=== PATIENT | male | born 1950 | race Caucasian/White ===

== ENCOUNTER 2016-11-30 16:37 | Observation (INO) | payer OTHER ==
--- NOTE | 2016-11-30 17:16 | ED.PDOC ---
History of Present Illness - General Chief Complaint: General Stated Complaint: palpitations Time Seen by Provider: 11/30/16 17:15 Source: patient Exam Limitations: no limitations - History of Present Illness Initial Comments: Lamonte Gonzalez 66 y/o male stated that she felt heart was racing about 1 1/2 h ago while at his md's office denies chest pains ,dizziness,light headedness,N/ V. He also stated that he took cold/sinus advil for his cough and congestion Timing/Duration: 1-3 hours Severity: moderate Improving Factors: nothing Worsening Factors: nothing Associated Symptoms: denies symptoms Allergies/Adverse Reactions: Allergies NO KNOWN ALLERGY Allergy (Verified 11/30/16 17:54) Home Medications: Ambulatory Orders Rosuvastatin Calcium [Crestor] 20 mg PO DAILY 11/30/16 Review of Systems - Review of Systems Constitutional: States: no symptoms reported EENTM: States: no symptoms reported Respiratory: States: no symptoms reported Cardiology: States: see HPI Gastrointestinal/Abdominal: States: no symptoms reported Genitourinary: States: no symptoms reported Musculoskeletal: States: no symptoms reported Skin: States: no symptoms reported Past Medical History (General) - Patient Medical History Hx Other PMH: Yes - hypercholesterolemia Surgical History: other - knee Family Medical History - Family History Mother Hx Family Cancer: Yes - Brain cancer-mom Physical Exam - Physical Exam General Appearance: Alert, No apparent distress Eye Exam: bilateral normal Ears, Nose, Throat: hearing grossly normal, normal ENT inspection Neck: non-tender, supple Respiratory: chest non-tender, lungs clear, normal breath sounds Cardiovascular/Chest: normal peripheral pulses, no gallop - heart rate-121, no murmur, tachycardia Peripheral Pulses: radial,right: 1+, radial,left: 1+ Gastrointestinal/Abdominal: normal bowel sounds, soft, no organomegaly, no pulsatile mass Back Exam: no CVA tenderness, no vertebral tenderness Extremity: no pedal edema, no calf tenderness Neurologic: no motor/sensory deficits, alert Skin Exam: normal color, warm/dry Lymphatic: no adenopathy Progress - Progress Progress: 11/30/16 20:08 Vital Signs - 8 hr 11/30/16 11/30/16 11/30/16 17:34 17:48 18:25 Temperature 98.1 F 97.8 F Pulse Rate [L] 124 H 126 H 123 H Respiratory 18 18 18 Rate Blood Pressure 152/88 146/97 148/100 [Left Arm] O2 Sat by Pulse 97 98 97 Oximetry Laboratory Tests 11/30/16 11/30/16 11/30/16 17:25 17:25 17:25 WBC 8.6 RBC 5.10 Hgb 14.5 Hct 42.8 MCV 84.0 MCH 28.5 MCHC 33.9 RDW 13.3 Plt Count 132 MPV 6.9 L Absolute Neuts (auto) 6.30 Absolute Lymphs (auto) 1.10 Absolute Monos (auto) 1.10 H Absolute Eos (auto) 0.10 Absolute Basos (auto) 0.10 Neutrophils % 72.8 Lymphocytes % 12.8 L Monocytes % 12.9 H Eosinophils % 0.6 L Basophils % 0.9 Sodium 137 Potassium 3.8 Chloride 104 Carbon Dioxide 24 Anion Gap 12.8 BUN 19 H Creatinine 1.18 BUN/Creatinine Ratio 16.1 Random Glucose 139 H Serum Osmolality 278.3 Calcium 9.4 Total Bilirubin 1.0 AST 20 ALT 18 Alkaline Phosphatase 76 Troponin I 0.05 Serum Total Protein 8.0 Albumin 4.7 Globulin 3.3 Albumin/Globulin Ratio 1.4 Urine Color Urine Appearance Urine pH Ur Specific [place] Urine Protein Urine Glucose (UA) Urine Ketones Urine Blood Urine Nitrite Urine Bilirubin Urine Urobilinogen Ur Leukocyte Esterase Urine RBC Urine WBC Ur Epithelial Cells Urine Bacteria 11/30/16 11/30/16 18:00 19:06 WBC RBC Hgb Hct MCV MCH MCHC RDW Plt Count MPV Absolute Neuts (auto) Absolute Lymphs (auto) Absolute Monos (auto) Absolute Eos (auto) Absolute Basos (auto) Neutrophils % Lymphocytes % Monocytes % Eosinophils % Basophils % Sodium Potassium Chloride Carbon Dioxide Anion Gap BUN Creatinine BUN/Creatinine Ratio Random Glucose Serum Osmolality Calcium Total Bilirubin AST ALT Alkaline Phosphatase Troponin I 0.05 Serum Total Protein Albumin Globulin Albumin/Globulin Ratio Urine Color Yellow Urine Appearance Clear Urine pH 6.0 Ur Specific [place] 1.010 Urine Protein Negative Urine Glucose (UA) Negative Urine Ketones Negative Urine Blood Trace-intact H Urine Nitrite Negative Urine Bilirubin Negative Urine Urobilinogen 0.2 Ur Leukocyte Esterase Negative Urine RBC 0-1 Urine WBC 0-1 Ur Epithelial Cells 0 Urine Bacteria 0 - EKG/XRAY/CT EKG: Sinus, Tachy, nonspecific ST T wave Chg Comments: Heart rate-124 XRAY: chest - no acute abnormalities Departure - Departure Clinical Impression: Inappropriate sinus node tachycardia Time of Disposition: 20:10 - D/W Esperanza Brower-ANP/Hospitalist Disposition: Admit Patient Condition: Fair Departure Forms: ED Discharge - Pt. Copy, Patient Portal Self Enrollment Referrals: Vernon Paris MD [Primary Care Provider] - 1-2 Weeks Home Medications: Ambulatory Orders Rosuvastatin Calcium [Crestor] 20 mg PO DAILY 11/30/16 Decision To Admit - Decistion To Admit Decision to Admit Reason: Admit from ER Decision to Admit Date: 11/30/16 Decision to Admit Time: 20:07
[2016-11-30] MEDS ORDERED: LABETALOL INJ 5 MG/ML VIAL IV ONE (18:17)
--- NOTE | 2016-11-30 18:23 | RAD ---
EXAM: Chest,1 View CLINICAL INDICATION: 66-year-old male with palpitations. TECHNIQUE: Single view, AP portable chest was obtained. COMPARISON: 04/29/2006. FINDINGS: Unremarkable cardiac and mediastinal silhouette. Heart size is normal. Lungs are clear without focal opacity, pneumothorax or pleural effusions. The visualized bones are within normal limits. IMPRESSION: No acute cardiopulmonary abnormalities. Electronically signed by: Chen Vanegas MD 11/30/2016 6:22 PM CDT Workstation: [id number]
[2016-11-30] MEDS ORDERED: SODIUM CHLORIDE 0.9% 1000ML 1,000 ML IVS ONE (19:52)
[2016-11-30] MEDS ORDERED: LABETALOL INJ 5 MG/ML VIAL ONE (20:02)
[2016-11-30] MEDS ORDERED: LIDOCAINE VIS-MYLANTA 30 ML UD PO ONE ×2 (22:05)
--- NOTE | 2016-11-30 22:08 | HP ---
SUPERVISING PHYSICIAN: Vernon Paris MD CHIEF COMPLAINT: Palpitations. HISTORY OF PRESENT ILLNESS: This is a 66-year-old male patient who had some chest congestion, some coughing and drainage and thought it was his sinuses that were acting up. He has had a history on and off of his pulse getting somewhat elevated, but he went to the Urgent Care Clinic at [facility] and during his exam was found to have a pulse rate in the 150s. He was immediately sent over to the Emergency Room. In the Emergency Room, he had no complaints of chest pain, but he did complain of some fluttering in his chest. His initial cardiac enzymes showed a troponin of 0.05 and 1-1/2 hours later, his subsequent troponin was 0.05. He was observed in the Emergency Room for about 2 hours and his heart rate did not decrease. He has also had quite a bit of anxiety over the last couple of months as his was diagnosed with colon cancer and had a partial colon resection. He also thought that he had not been drinking as much water as he typically does. His urinalysis was basically within normal limits with the exception of trace of urine blood. His CBC was also within normal limits. His chemistries were basically within normal limits with the exception that his glucose was 139 and BUN was 19. Chest x-ray per radiologic interpretation showed no acute cardiopulmonary abnormality. He was then given some Ativan as well as some labetalol. His heart rate dropped from 120s to 130s down to 86. Due to the new onset of tachycardia, I was called for admission. PAST MEDICAL HISTORY: 1. Hyperlipidemia. 2. Gastroesophageal reflux disease. 3. Type 2 diabetes mellitus, diet controlled. 4. Anxiety. PAST SURGICAL HISTORY: 1. Left knee surgery in 1967. 2. Colonoscopy in 2001. OUTPATIENT MEDICATIONS: 1. Crestor. ALLERGIES: NO KNOWN DRUG ALLERGIES. SOCIAL HISTORY: He lives in [place]. He is . He has two children. He denies any tobacco, ETOH, or illicit drug use. REVIEW OF SYSTEMS: GENERAL: Denies fever, fatigue or weight changes. HEENT: Positive for sinus symptoms and drainage as well as sore throat. Negative for ear pain or vision changes. RESPIRATORY: Positive for chest congestion and dry, nonproductive cough. Negative for wheezing or shortness of breath. CARDIAC: As per history of present illness. GASTROINTESTINAL: Negative for nausea, vomiting, diarrhea, constipation or abdominal pain. GENITOURINARY: Negative for hematuria, dysuria or polyuria. NEUROLOGIC: Negative for headache, dizziness, or seizures. PHYSICAL EXAMINATION: VITAL SIGNS: Temperature now 97.4. Heart rate 86. Blood pressure 138/85. Respiratory rate 18. O2 saturation 97%. GENERAL: This is a 66-year-old, male patient who is in no acute distress. HEENT: Normocephalic, atraumatic. Pupils are equal and reactive. Oropharynx is clear. He does have some clear nasal drainage. RESPIRATORY: Clear to auscultation bilaterally. CHEST: There is equal rise and fall of the chest with inspiration and expiration. CARDIOVASCULAR: At this time, regular rate and rhythm. Earlier in the Emergency Room, his heart was sinus tachycardia with rates in the 120s to 130s. At that time, it was sinus tachycardia on the monitoring and evaluation advisor, now sinus rhythm on the monitoring and evaluation advisor. ABDOMEN: Soft, nondistended, nontender. Bowel sounds are positive. EXTREMITIES: No cyanosis, clubbing or edema. NEUROLOGIC: Awake, alert and oriented times three. LABORATORY: Labs and films are as per the history of present illness. ASSESSMENT: 1. New onset of sinus tachycardia, may be related to anxiety, but with a troponin at the upper limit of normal. 2. Acute sinusitis, most likely seasonal allergy related. 3. Gastroesophageal reflux disease. 4. Diabetes mellitus, type 2. 5. Anxiety. PLAN: We will place the patient in observation. I will repeat two additional cardiac enzymes as well as EKGs. I have given him Xanax for his anxiety. I will start him on Claritin for his seasonal allergies. We may need to start him on nasal steroid tomorrow for his acute sinusitis. He will be on the monitoring and evaluation advisor. I have ordered proton pump inhibitor for ulcer prophylaxis and it may be warranted that he needs a proton pump inhibitor on discharge until he can see Dr. Paris in followup. It has been about 15 years since he had his last colonoscopy, so he will need to followup with his GI doctor. Consider placing him on a low dose SSRI. I have ordered routine labs for in the morning. We will continue to monitor the patient closely and follow as needed. Dr. Paris is the collaborating physician and available for consultation. #[id number] [facility]
[2016-11-30] MEDS ORDERED: SODIUM CHLORIDE 0.9% (FLUSH) 10 ML SYG IV PRN (22:23)
[2016-11-30] MEDS ORDERED: NITROGLYCERIN 0.4 MG 25 EA TAB SL PRN (22:23)
[2016-11-30] MEDS ORDERED: ACETAMINOPHEN 325 MG TAB PO PRN (22:23)
[2016-11-30] MEDS ORDERED: MORPHINE SULFATE INJ 10 MG/ML VIAL IV PRN (22:23)
[2016-11-30] MEDS ORDERED: IV SET AND CAP CHANGE INJ INJ SCH (22:30)
[2016-11-30] MEDS ORDERED: ALPRAZolam 0.25 MG TAB PO PRN (22:31)
[2016-11-30] MEDS ORDERED: PANTOPRAZOLE SODIUM IV 40 MG VIAL IV SCH (23:00)
[2016-12-01 06:29] VITALS: TEMP 98.3
[2016-12-01] MEDS ORDERED: SODIUM CHLORIDE 0.9% (FLUSH) 10 ML SYG IV SCH (09:00)
[2016-12-01] MEDS ORDERED: ASPIRIN TABLET 325 MG TAB PO SCH (09:00)
[2016-12-01] MEDS ORDERED: ATORVASTATIN 20 MG TAB PO SCH (09:00)
[2016-12-01] MEDS ORDERED: NON-FORMULARY MEDICATION 1 EA MIS (Rosuvastatin Calcium [Crestor] 20 MG) PO SCH (09:00)
[2016-12-01 10:23] VITALS: BP 117/70; O2SAT 98
[2016-12-01] MEDS ORDERED: PANTOPRAZOLE SODIUM TAB 40 MG PO SCH (11:30)
--- NOTE | 2016-12-01 13:07 | DS ---
SUPERVISING PHYSICIAN: Vernon Paris MD DISCHARGE DIAGNOSIS: 1. New onset of sinus tachycardia, may be related to anxiety, but initial troponins at the upper limits of normal at 0.05 and negative cardiac enzymes with his final troponin at 0.03. His heart rate normalized after one dose of labetalol and lorazepam. 2. Gastroesophageal reflux disease. 3. Acute sinusitis, most likely seasonal allergy related. 4. Diabetes mellitus, type 2, diet controlled. 5. Anxiety. HISTORY OF PRESENT ILLNESS: This is a 66-year-old male patient who had some chest congestion, some coughing and drainage and thought it was his sinuses that were acting up. He has had a history on and off of his pulse getting somewhat elevated, but he went to the Urgent Care Clinic at [facility] and during his exam was found to have a pulse rate in the 150s. He was immediately sent over to the Emergency Room. In the Emergency Room, he had no complaints of chest pain, but he did complain of some fluttering in his chest. His initial cardiac enzymes showed a troponin of 0.05 and 1-1/2 hours later, his subsequent troponin was 0.05. He was observed in the Emergency Room for about 2 hours and his heart rate did not decrease. He has also had quite a bit of anxiety over the last couple of months as his was diagnosed with colon cancer and had a partial colon resection. He also thought that he had not been drinking as much water as he typically does. His urinalysis was basically within normal limits with the exception of trace of urine blood. His CBC was also within normal limits. His chemistries were basically within normal limits with the exception that his glucose was 139 and BUN was 19. Chest x-ray per radiologic interpretation showed no acute cardiopulmonary abnormality. He was then given some Ativan as well as some labetalol. His heart rate dropped from 120s to 130s down to 86. Due to the new onset of tachycardia, I was called for admission. HOSPITAL COURSE: The patient was placed in observation in the hospital. His subsequent cardiac enzymes were negative and his last troponin was 0.03. He was also given Protonix for ulcer prophylaxis and the patient reported that he had had Protonix in the past and it improved his gastroesophageal reflux disease symptoms and felt that it did the same thing on this admission. His chemistries were basically within normal limits as well as his cholesterol. His hemoglobin and hematocrit were slightly low at 12.7 and 36.7. EKGs were within normal limits. He has had no complaints of chest pain, shortness of breath, nausea or vomiting, diaphoresis and he will be discharged home. DISCHARGE PLAN: The patient will be discharged home in stable condition. He is to resume his previous diet and activity. He has a followup appointment with Dr. Paris on 12/15/16 at 10:45 AM. Recommendations would be that he get a cardiac workup including a stress test and echocardiogram. He will also need colonoscopy as he has not had one in 15 years. I am going to send him home on some Protonix as that may help with his gastroesophageal reflux disease symptoms for right now. He will also be discharged on his Crestor as well as an aspirin. He is to return to the hospital or call Dr. Paris's office for any further problems or complications. DISCHARGE MEDICATIONS: 1. Crestor. 2. Aspirin. 3. Protonix. Dr. Paris is the collaborating physician and available for consultation. #[id number] [facility]
== END 2016-12-01 11:25 | disposition home or self-care (01) ==
LOC: ER 16:37 → MS 22:07
PROVIDERS: ADMIT Nurse Practitioner Acute Care; ATTEND Nurse Practitioner Acute Care
DX: R00.0 Tachycardia, unspecified (principal); K21.9 Gastro-esophageal reflux disease without esophagitis; J01.90 Acute sinusitis, unspecified; E11.9 Type 2 diabetes mellitus without complications; F41.9 Anxiety disorder, unspecified; E78.5 Hyperlipidemia, unspecified; Z79.899 Other long term (current) drug therapy
CPT/HCPCS: 36415 ×5; 71010; 80048; 80053; 80061; 81001; 82550 ×2; 82553 ×2; 84484 ×4; 85025 ×2; 93005 ×4; 94760 ×2; 96361; 96374; 96375 ×2; 99284; G0378; J2060; J7030

== ENCOUNTER → 2016-12-15 | Outpatient (CLI) | payer OTHER | LOC: GMAM 14:54 | PROVIDERS: ATTEND Family Medicine | DX: R00.0 Tachycardia, unspecified (principal) ==

== ENCOUNTER 2017-02-27 08:09 | Emergency (ER) | payer OTHER ==
[2017-02-27] MEDS ORDERED: LIDOCAINE VIS-MYLANTA 30 ML UD PO ONE (08:41)
[2017-02-27 08:44] VITALS: TEMP 99.8; O2SAT 98
--- NOTE | 2017-02-27 08:48 | ED.PDOC ---
History of Present Illness - General Chief Complaint: General Stated Complaint: Follow up after acid reflux sx's & R shoulder pain Time Seen by Provider: 02/27/17 08:43 Source: patient, family Exam Limitations: no limitations - History of Present Illness Timing/Duration: 4-6 hours, constant Severity: mild Improving Factors: nothing Worsening Factors: nothing Associated Symptoms: loss of appetite, malaise - pt reports belching and burning in epigastric area, states that ate poorly yesterday secondary to holiday cooking. did not take any medications for it. associated with nausea. reports recently started on elliquis for right DVT and "over did it" yesterday. Has a history of GERD. has not missed any medication doses recently. no shortness of breath, no chest pain, no weakness. no dark stools or bleeding Allergies/Adverse Reactions: Allergies NO KNOWN ALLERGY Allergy (Verified 02/27/17 08:23) Home Medications: Ambulatory Orders Rosuvastatin Calcium [Crestor] 20 mg PO DAILY 11/30/16 Pantoprazole Tablet [Protonix] 40 mg PO DAILY@0630 #30 tablet 12/01/16 Apixaban [Eliquis] 5 mg PO BID 02/27/17 Fexofenadine HCl [Viviane Allergy] 180 mg PO DAILY 02/27/17 Sucralfate Tab [Carafate Tab] 1 gm PO TID #30 tab 02/27/17 Review of Systems - Review of Systems Constitutional: States: malaise. Denies: chills, fever, weakness EENTM: Denies: ear pain, nose pain, nose congestion, throat pain, throat swelling, mouth pain, mouth swelling Respiratory: Denies: cough, short of breath, wheezing Cardiology: Denies: chest pain, syncope Gastrointestinal/Abdominal: States: abdominal pain, nausea. Denies: diarrhea, vomiting Genitourinary: Denies: dysuria, frequency, hematuria Musculoskeletal: Denies: gout, joint pain, joint swelling, muscle pain, muscle stiffness Skin: Denies: change in hair/nails, dryness, lesions Neurological: States: anxiety. Denies: depressed, headache, numbness, paresthesia, tingling, tremors, weakness Endocrine: Denies: excessive sweating, flushing, intolerance to cold, intolerance to heat, increased hunger, increased thirst, increased urine Hematologic/Lymphatic: States: blood clots Past Medical History (General) - Patient Medical History Hx Seizures: No Hx Stroke: No Hx Asthma: No Hx of COPD: No Hx Cardiac Disorders: Yes - hypercholesterolemia; dx of blood clot 02/2017 Hx Congestive Heart Failure: No Hx Pacemaker: No Hx Hypertension: No Hx Diabetes: No - hypoglycemia Hx Gastroesophageal Reflux: Yes Hx Cancer: No Hx Hepatitis C: No Hx MRSA: No Surgical History: other - Vaccination History Hx Tetanus, Diphtheria Vaccination: No Hx Influenza Vaccination: No Hx Pneumococcal Vaccination: Yes - Social History Hx Tobacco Use: No Hx Chewing Tobacco Use: No Hx Alcohol Use: No Hx Substance Use: No Hx Substance Use Treatment: No Hx Depression: No Hx Physical Abuse: No Hx Emotional Abuse: No Hx Suspected Abuse: No Family Medical History - Family History Mother Hx Family Cancer: Yes - Brain cancer-mom Physical Exam - Physical Exam General Appearance: Alert, Anxious, No apparent distress, Well Developed, Well Groomed, Well Hydrated, Well Nourished Eye Exam: bilateral normal Ears, Nose, Throat: normal ENT inspection, normal pharynx Neck: non-tender, full range of motion, supple Respiratory: chest non-tender, lungs clear, normal breath sounds, no respiratory distress, no accessory muscle use Cardiovascular/Chest: normal peripheral pulses, no edema, no gallop, no JVD, no murmur, tachycardia Peripheral Pulses: radial,right: 2+, popliteal,right: 2+, popliteal,left: 2+ Gastrointestinal/Abdominal: non tender, soft Extremity: normal range of motion, non-tender, no calf tenderness Neurologic: access specialist II-XII nml as tested, no motor/sensory deficits Skin Exam: normal color, warm/dry Lymphatic: no adenopathy Progress - Progress Progress: 02/27/17 09:03 pt's symptoms resolved after GI slider; discussed vital signs with patient. 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 Will slight temp elevation discussed precautions for infectious etiology. Agreed to give urine sample given malaise, tachycardia, temp elevation to rule out UTI. 02/27/17 09:19 02/27/17 08:27 EKG Assessment ONCE 02/27/17 08:30 EKG STAT Laboratory Results Urine Color Yellow (Yellow) 02/27/17 09:06 Urine Appearance Clear (Clear) 02/27/17 09:06 Urine pH 6.5 (4.5-7.8) 02/27/17 09:06 Ur Specific [place] 1.020 (1.005-1.030) 02/27/17 09:06 Urine Protein Negative mg/dL 02/27/17 09:06 Urine Glucose (UA) Negative mg/dL (Negative) 02/27/17 09:06 Urine Ketones Negative mg/dL (NEGATIVE) 02/27/17 09:06 Urine Blood Negative (Negative) 02/27/17 09:06 Urine Nitrite Negative 02/27/17 09:06 Urine Bilirubin Negative (NEGATIVE) 02/27/17 09:06 Urine Urobilinogen 0.2 mg/dL (0.2-1.0) 02/27/17 09:06 Ur Leukocyte Esterase Negative (Negative) 02/27/17 09:06 Urine RBC 0 /hpf 02/27/17 09:06 Urine WBC 0 /hpf 02/27/17 09:06 Ur Epithelial Cells 0 /hpf 02/27/17 09:06 Urine Bacteria 0 02/27/17 09:06 - EKG/XRAY/CT EKG: Sinus - qtc 457, Tachy Comments: no right heart strain, no s in 1 or q t in 3 rate 114, pr 182, qrs 80 Departure - Departure Clinical Impression: GERD (gastroesophageal reflux disease) Disposition: Discharge to Home or Self Care Condition: Excellent Departure Forms: ED Discharge - Pt. Copy, Patient Portal Self Enrollment Instructions: Heartburn -- Overview, DI for Gastroesophageal Reflux Disease ( GERD), GERD Diet Diet: bland diet Activity: increase activity as tolerated Referrals: Vernon Paris MD [Primary Care Provider] - 1-2 Weeks Prescriptions: Sucralfate Tab [Carafate Tab] 1 gm PO TID #30 tab Home Medications: Ambulatory Orders Rosuvastatin Calcium [Crestor] 20 mg PO DAILY 11/30/16 Pantoprazole Tablet [Protonix] 40 mg PO DAILY@0630 #30 tablet 12/01/16 Apixaban [Eliquis] 5 mg PO BID 02/27/17 Fexofenadine HCl [Viviane Allergy] 180 mg PO DAILY 02/27/17 Sucralfate Tab [Carafate Tab] 1 gm PO TID #30 tab 02/27/17
[2017-02-27 09:32] VITALS: BP 140/80
== END 2017-02-27 09:27 | disposition home or self-care (01) ==
LOC: ER 08:09
DX: K21.9 Gastro-esophageal reflux disease without esophagitis (principal); R00.0 Tachycardia, unspecified; E78.00 Pure hypercholesterolemia, unspecified; Z86.718 Personal history of other venous thrombosis and embolism

== ENCOUNTER → 2017-06-20 | Outpatient (CLI) | payer OTHER | LOC: GMAM 10:21 | PROVIDERS: ATTEND Family Medicine | DX: Z12.5 Encounter for screening for malignant neoplasm of prostate (principal) ==

== ENCOUNTER 2018-01-14 16:13 | Emergency (ER) | payer OTHER ==
[2018-01-14 16:30] VITALS: TEMP 98.8
--- NOTE | 2018-01-14 16:31 | ED.PDOC ---
History of Present Illness - General Chief Complaint: General Time Seen by Provider: 01/14/18 16:24 Source: patient Exam Limitations: no limitations - History of Present Illness Initial Comments: PT HAS HAD KNOWN DVT RLE FOR PAST 10 MONTHS. HAS BEEN ON ELIQUIS SINCE THAT TIME AND HAS NOT RECENTLY MISSED ANY DOSES. NO HX OF TRAUMA TO THE EXTREMITY. HAS BEEN WORKING MORE RECENTLY TOOK A NAP ON THE COUCH WITH HIS LEG PROPPED UP ON THE BACK. WHEN HE GOT UP HE HAD SEVERE PAIN TO THE RIGHT LEG FROM THE GROIN TO THE FOOT. Severity: moderate Worsening Factors: other - SPONTANEOUS RESOLUTION "FEELS 150% BETTER". Associated Symptoms: denies symptoms Allergies/Adverse Reactions: Allergies NO KNOWN ALLERGY Allergy (Verified 02/27/17 08:23) Home Medications: Ambulatory Orders Rosuvastatin Calcium [Crestor] 20 mg PO DAILY 11/30/16 Pantoprazole Tablet [Protonix] 40 mg PO DAILY@0630 #30 tablet 12/01/16 Apixaban [Eliquis] 5 mg PO BID 02/27/17 Review of Systems - Review of Systems Constitutional: Denies: chills, fever EENTM: Denies: no symptoms reported Respiratory: Denies: cough, short of breath Cardiology: Denies: chest pain, palpitations Gastrointestinal/Abdominal: Denies: abdominal pain, nausea, vomiting Genitourinary: States: no symptoms reported Musculoskeletal: States: other - LEG PAIN, NO SWELLING, NO ECCHYMOSIS. Skin: States: other - NO ECCHYMOSIS Neurological: States: no symptoms reported Endocrine: States: no symptoms reported Past Medical History (General) - Patient Medical History Hx Seizures: No Hx Stroke: No Hx Asthma: No Hx of COPD: No Hx Cardiac Disorders: Yes - hypercholesterolemia; DVT Hx Congestive Heart Failure: No Hx Pacemaker: No Hx Hypertension: No Hx Diabetes: Yes - Previously took Metformin; d/c'ed 2013 Hx Gastroesophageal Reflux: Yes Hx Cancer: No Hx Hepatitis C: No Hx MRSA: No - Vaccination History Hx Tetanus, Diphtheria Vaccination: No Hx Influenza Vaccination: Yes - 2018 Hx Pneumococcal Vaccination: Yes - Social History Hx Tobacco Use: No Hx Chewing Tobacco Use: No Hx Alcohol Use: No Hx Substance Use: No Hx Substance Use Treatment: No Hx Depression: No Hx Physical Abuse: No Hx Emotional Abuse: No Hx Suspected Abuse: No Family Medical History - Family History Mother Hx Family Cancer: Yes - Brain cancer-mom Physical Exam - Physical Exam General Appearance: Alert, No apparent distress Eye Exam: bilateral normal Ears, Nose, Throat: hearing grossly normal, normal ENT inspection Neck: non-tender, full range of motion, supple Respiratory: lungs clear, no respiratory distress Cardiovascular/Chest: regular rate, rhythm, no murmur Gastrointestinal/Abdominal: non tender, soft, no organomegaly Back Exam: normal inspection, no CVA tenderness Extremity: normal range of motion, non-tender, normal inspection, other - GOOD DISTAL PULSES Neurologic: no motor/sensory deficits, alert, normal mood/affect, oriented x 3, other - REFLEXES NL. Skin Exam: normal color, warm/dry Lymphatic: no adenopathy Progress - Progress Progress: 01/14/18 17:04 PT VERY COMFORTABLE, NO EVIDENCE OF RECURRENCE, OR VASCULAR OCCLUSION. 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 Copy, Patient Portal Self Enrollment Instructions: Muscle and Bone Pain (DC) Referrals: Vernon Paris MD [Primary Care Provider] - 1-2 Weeks Home Medications: Ambulatory Orders Rosuvastatin Calcium [Crestor] 20 mg PO DAILY 11/30/16 Pantoprazole Tablet [Protonix] 40 mg PO DAILY@0630 #30 tablet 12/01/16 Apixaban [Eliquis] 5 mg PO BID 02/27/17
[2018-01-14 17:45] VITALS: BP 139/79; O2SAT 99
== END 2018-01-14 17:22 | disposition home or self-care (01) ==
LOC: ER 16:13
DX: I82.501 Chronic embolism and thrombosis of unspecified deep veins of right lower extremity (principal); D68.51 Activated protein C resistance; E78.00 Pure hypercholesterolemia, unspecified; E11.9 Type 2 diabetes mellitus without complications; K21.9 Gastro-esophageal reflux disease without esophagitis; Z79.01 Long term (current) use of anticoagulants; Z86.718 Personal history of other venous thrombosis and embolism; Z79.899 Other long term (current) drug therapy

== ENCOUNTER → 2019-01-10 | Outpatient (CLI) | payer OTHER | LOC: GMAM 12:34 | PROVIDERS: ATTEND Family Medicine | DX: I82.411 Acute embolism and thrombosis of right femoral vein (principal); E78.2 Mixed hyperlipidemia; E11.9 Type 2 diabetes mellitus without complications ==

== ENCOUNTER → 2020-01-24 | Outpatient (CLI) | payer OTHER | LOC: GMAM 11:02 | PROVIDERS: ATTEND Family Medicine | DX: I82.411 Acute embolism and thrombosis of right femoral vein (principal); Z12.5 Encounter for screening for malignant neoplasm of prostate; E11.9 Type 2 diabetes mellitus without complications; E78.2 Mixed hyperlipidemia | CPT/HCPCS: 85379; G0103 ==

== ENCOUNTER → 2020-02-07 | Outpatient (CLI) | payer OTHER | LOC: GMAM 14:34 | PROVIDERS: ATTEND Family Medicine | DX: B34.2 Coronavirus infection, unspecified (principal); R71.8 Other abnormality of red blood cells; R09.02 Hypoxemia ==

== ENCOUNTER 2020-02-10 10:02 | Emergency (ER) | payer OTHER ==
--- NOTE | 2020-02-10 10:26 | ED.PDOC ---
History of Present Illness - General Chief Complaint: Respiratory Problem Stated Complaint: Covid + day 8, increased cough Time Seen by Provider: 02/10/20 10:23 Source: patient - History of Present Illness Initial Comments: 8 days ago tested positive. concerned that cough might be a little worse, tmax last 24 hours of 100.4. Activities at Onset: none Possible Cause: no prior episodes Improving Factors: nothing Worsening Factors: nothing Associated Symptoms: chest pain, cough, other - poor appetite Respiratory Risk Factors: other - no high risk factors other than age, hx of prior dvt, Allergies/Adverse Reactions: Allergies NO KNOWN ALLERGY Allergy (Verified 02/27/17 08:23) Home Medications: Ambulatory Orders Rosuvastatin Calcium [Crestor] 20 mg PO DAILY 11/30/16 Pantoprazole Tablet [Protonix] 40 mg PO DAILY@0630 #30 tablet 12/01/16 Apixaban [Eliquis] 5 mg PO BID 02/27/17 Review of Systems - Review of Systems Constitutional: States: fever, weakness EENTM: States: no symptoms reported Respiratory: States: cough, short of breath Cardiology: States: chest pain Gastrointestinal/Abdominal: States: nausea Past Medical History (General) - Patient Medical History Hx Seizures: No Hx Stroke: No Hx Asthma: No Hx of COPD: No Hx Cardiac Disorders: Yes - hypercholesterolemia; DVT Hx Congestive Heart Failure: No Hx Pacemaker: No Hx Hypertension: No Hx Diabetes: Yes - Previously took Metformin; d/c'ed 2013 Hx Gastroesophageal Reflux: Yes Hx Cancer: No Hx Hepatitis C: No Hx MRSA: No - Vaccination History Hx Tetanus, Diphtheria Vaccination: No Hx Influenza Vaccination: Yes - 2018 Hx Pneumococcal Vaccination: Yes - Social History Hx Tobacco Use: No Hx Chewing Tobacco Use: No Hx Alcohol Use: No Hx Substance Use: No Hx Substance Use Treatment: No Hx Depression: No Hx Physical Abuse: No Hx Emotional Abuse: No Hx Suspected Abuse: No Family Medical History - Family History Mother Hx Family Cancer: Yes - Brain cancer-mom Physical Exam - Physical Exam General Appearance: Alert, Anxious, Comfortable Neck: non-tender, full range of motion, supple Respiratory: chest non-tender, rales - diffusely in lower lung singh Cardiovascular/Chest: normal peripheral pulses, regular rate, rhythm, no edema Gastrointestinal/Abdominal: normal bowel sounds, non tender, soft, no organomegaly Extremity: normal range of motion Neurologic: centerless grinder tender II-XII nml as tested Skin Exam: normal color Progress - Progress Progress: 02/10/20 12:20 PATIENT APPEARS TO HAVE FAIRLY MILD COVID, NO INDICATION FOR HOSPITALIZATION. PATIENT CAUTIONED TO RETURN TO HOSPITAL IF ANY SEVERE SYMPTOMS. Departure - Departure Clinical Impression: COVID-19 Time of Disposition: 11:48 Disposition: Discharge to Home or Self Care Condition: Fair Departure Forms: ED Discharge - Pt. Copy, Patient Portal Self Enrollment Instructions: Coronavirus Disease 2019 (COVID-19) Referrals: Vernon Paris MD [Primary Care Provider] - 1-2 Weeks Home Medications: Ambulatory Orders Rosuvastatin Calcium [Crestor] 20 mg PO DAILY 11/30/16 Pantoprazole Tablet [Protonix] 40 mg PO DAILY@0630 #30 tablet 12/01/16 Apixaban [Eliquis] 5 mg PO BID 02/27/17 Additional Instructions: RECOMMEND SUPPLEMENTAL ZINC AND VITAMIN C. RETURN TO ER IF ANY NEW OR WORSENING SYMPTOMS.
[2020-02-10] MEDS ORDERED: ONDANSETRON INJ 4 MG/2 ML VIAL IV ONE (10:29)
[2020-02-10] MEDS ORDERED: SODIUM CHLORIDE 0.9% 1000ML 1,000 ML IVS ONE (10:29)
--- NOTE | 2020-02-10 11:25 | RAD ---
PROCEDURE:XR CHEST 1 VIEW HISTORY:cough, sob COMPARISON: November 30, 2016 FINDINGS: The heart appears unremarkable. The lungs are clear there is no alveolar consolidation, effusion or pneumothorax. There are no acute bony or soft tissue abnormalities. IMPRESSION: No acute cardiopulmonary process. Electronically signed by: Davin Mtz MD 02/10/2020 11:23 AM [facility]
[2020-02-10 12:34] VITALS: BP 140/83; TEMP 98.5; O2SAT 98
== END 2020-02-10 12:58 | disposition home or self-care (01) ==
LOC: ER 10:02
DX: U07.1 COVID-19 (principal); E78.00 Pure hypercholesterolemia, unspecified; Z86.718 Personal history of other venous thrombosis and embolism; Z79.01 Long term (current) use of anticoagulants
CPT/HCPCS: 36415; 71045; 80048; 80076; 82550; 82553; 84484; 85025; 85610; 85730; 93005; J2405; J7030

== ENCOUNTER → 2020-02-12 | Outpatient (CLI) | payer OTHER | LOC: GMAM 15:08 | PROVIDERS: ATTEND Family Medicine | DX: U07.1 COVID-19 (principal); R09.02 Hypoxemia ==